=== PATIENT | female | born 1990 | race Hispanic/Latino ===

== ENCOUNTER 2016-09-16 12:42 | Emergency (ER) | payer OTHER ==
[2016-09-16 12:48] VITALS: RESP 20; TEMP 98; O2SAT 99
--- NOTE | 2016-09-16 12:59 | ED PDOC ---
HPI: Back Time Seen by Provider: 09/16/16 12:48 Chief Complaint (Nursing): Back Pain Chief Complaint (Provider): Back Pain History Per: Patient History/Exam Limitations: no limitations Onset/Duration Of Symptoms: Days (1 ) Current Symptoms Are (Timing): Still Present Quality Of Discomfort: "Pain" Severity: Moderate Additional Complaint(s): Sunita Wilson is a 26 y/o female, with a past medical history of Urinary Tract Infections, presenting to the ER on 09/16/2016 with complaints of lower back pain. Patient reports pain began on her flight back from [place] last night. When she came home this morning, she felt her back pain progressively worsen. She took three tabs of Advil around 08:00 this morning with no relief, prompting her to seek medical evaluation. Patient denies any dysuria, hematuria , or urinary incontinence. She additionally denies any injuries or trauma to the area that may have caused the back pain. Patient states pain does not radiate down her legs. Additionally states she has not had any similar episodes in the past nor history of kidney stones. She recently traveled out of the country two weeks ago. Past Medical History Reviewed: Historical Data, Nursing Documentation, Vital Signs Vital Signs: Last Vital Signs Temp 98 F 09/16/16 12:44 Pulse 71 09/16/16 12:44 Resp 20 09/16/16 12:44 BP 152/101 H 09/16/16 12:44 Pulse Ox 99 09/16/16 12:44 - Medical History Other PMH: UTIs - Surgical History Surgical History: No Surg Hx - Family History Family History: States: Hypertension - Living Arrangements Living Arrangements: With Family - Social History Current smoker - smoking cessation education provided: No Alcohol: None Drugs: Denies - Home Medications Home Medications: Ambulatory Orders Medication Instructions Recorded Meloxicam [Mobic] 7.5 mg PO DAILY PRN #30 tab 09/16/16 Methocarbamol [Robaxin] 500 mg PO Q8 PRN #15 tab 09/16/16 Methylprednisolone [Medrol Dose 4 mg PO DAILY #21 mg 09/16/16 Pack (21 tabs)] Nitrofurantoin Macrocrystals 100 mg PO BID #14 cap 09/16/16 [Macrobid] - Allergies Allergies/Adverse Reactions: Allergies Allergy/AdvReac Type Severity Reaction Status Date / Time No Known Allergies Allergy Verified 09/16/16 12:44 Review of Systems ROS Statement: Except As Marked, All Systems Reviewed And Found Negative Genitourinary Female: Negative for: Dysuria, Incontinence, Hematuria Musculoskeletal: Positive for: Back Pain Neurological: Negative for: Weakness, Numbness Physical Exam - Reviewed Nursing Documentation Reviewed: Yes Vital Signs Reviewed: Yes - Physical Exam Appears: Positive for: Non-toxic, In Acute Distress ((+) mild painful distress) Head Exam: Positive for: ATRAUMATIC, NORMOCEPHALIC Skin: Positive for: Normal Color. Negative for: Rash Eye Exam: Positive for: Normal appearance Neck: Positive for: Normal, Painless ROM, Supple Gastrointestinal/Abdominal: Positive for: Normal Exam, Soft. Negative for: Tenderness Back: Positive for: Normal Inspection, Vertebral Tenderness ((+) Minimal lumbrosacral ), Muscle Spasm ((+) bilat paralumbar ). Negative for: L CVA Tenderness, R CVA Tenderness Extremity: Positive for: Normal ROM. Negative for: Deformity, Swelling Neurologic/Psych: Positive for: Alert, Oriented. Negative for: Motor/Sensory Deficits - Laboratory Results Urine POC: Negative - ECG O2 Sat by Pulse Oximetry: 99 - Radiology X-Ray: Interpreted by Me (LS spine x-ray) X-Ray Interpretation: No Acute Disease - Progress ED Course And Treament: On re-evaluation, pt. reports no pain relief. Repeat BP: 131/81. Percocet 1 tab PO, valium 5mg PO given. On second re-evaluation, pt. reports moderate analgesia. Instructed to f/u with production painter for further evaluation and possible MRI. Medical Decision Making Medical Decision Makin:05 Initial Impression- 26 y/o female with lower back pain Initial Plan- * XR LS Spine * Toradol 15 mg IM * Flexeril 10 mg PO * Urine Dip * Urine Preg * Re-evaluate Documented by Zoie Knight , acting as a scribe for Joel Foster PA-C. All medical record entries made by the Scribe were at my direction and personally dictated by me. I have reviewed the chart and agree that the record accurately reflects my personal performance of the history, physical exam, medical decision making, and the department course for this patient. I have also personally directed, reviewed, and agree with the discharge instructions and disposition. Disposition - Clinical Impression Clinical Impression: Low back pain, UTI (urinary tract infection) - Patient ED Disposition Is Patient to be Admitted: No - Disposition Referrals: [facility] [Outside] Disposition: Routine/Home Disposition Time: 14:30 Condition: IMPROVED Prescriptions: Meloxicam [Mobic] 7.5 mg PO DAILY PRN #30 tab PRN Reason: Pain, Mild (1-3) Methocarbamol [Robaxin] 500 mg PO Q8 PRN #15 tab PRN Reason: Muscle Spasm Methylprednisolone [Medrol Dose Pack (21 tabs)] 4 mg PO DAILY #21 mg Nitrofurantoin Macrocrystals [Macrobid] 100 mg PO BID #14 cap Instructions: Acute Low Back Pain (ED), Urinary Tract Infection in Women (ED) Forms: [id number] (Danish), [facility] School/Work Excuse
--- NOTE | 2016-09-16 13:40 | RAD ---
PROCEDURE: Radiographs of the Lumbar Spine. HISTORY: pain COMPARISON: None available. FINDINGS: BONES: Alignment appears satisfactory. No listhesis. No acute displaced fracture identified. DISC SPACES: Unremarkable. OTHER FINDINGS: None. IMPRESSION: No acute displaced fracture or subluxation identified.
[2016-09-16 13:59] VITALS: BP 131/81; PULSE 69
[2016-09-16] MEDS ORDERED: Oxycodone/Acetaminophen 5/325 mg Tab PO STA (14:00)
[2016-09-16 14:02] LABS: RBC URINE 2 /hpf (0-3); URINE BACTERIA RARE (<OCC); URINE BILIRUBIN NEGATIVE (NEGATIVE); URINE BLOOD NEGATIVE (NEGATIVE); URINE COLOR YELLOW (YELLOW); URINE GLUCOSE (UA) NEG (Normal); URINE KETONE NEGATIVE (NEGATIVE); URINE LEUKOCYTE ESTERASE LARGE Leu/uL (Negative); URINE PROTEIN 30 mg/dL (NEGATIVE); URINE UROBILINOGEN 0.2-1.0 mg/dL (0.2-1.0); WBC URINE 8 /hpf (0-5)
== END 2016-09-16 14:40 | disposition home or self-care (01) ==
LOC: H.ER 12:42
DX: N39.0 Urinary tract infection, site not specified (principal); M54.5 Low back pain